=== PATIENT | male | born 1990 | race Caucasian/White ===

== ENCOUNTER 2017-05-06 03:16 | Emergency (ER) | payer MEDICAID ==
[~2017-05-06] VITALS: Ht 170.2 cm; Wt 85.5 kg
[~2017-05-06 03:16] MED LIST: COL100 PO; MYL80 CH; ZOFRAN ODT4 MG SL
[2017-05-06 03:34] VITALS: Ht 170.2 cm; Wt 85.5 kg
[2017-05-06 05:29] VITALS: BP 130/86
== END 2017-05-06 08:04 | disposition home or self-care (01) ==
LOC: ED 03:16
DX: J20.9 Acute bronchitis, unspecified (principal)

== ENCOUNTER 2018-08-14 21:44 | Emergency (ER) | payer OTHER ==
[~2018-08-14] VITALS: Ht 170.2 cm; Wt 88.5 kg
[2018-08-14 22:00] VITALS: Ht 170.2 cm; Wt 88.5 kg
[2018-08-15 00:56] VITALS: BP 122/71
== END 2018-08-15 00:56 | disposition home or self-care (01) ==
LOC: ED 21:44
DX: L02.31 Cutaneous abscess of buttock (principal); Z90.89 Acquired absence of other organs
CPT/HCPCS: J1885; J2001

== ENCOUNTER 2019-09-12 16:18 | Emergency (ER) | payer OTHER ==
[~2019-09-12] VITALS: Ht 170.2 cm; Wt 92.1 kg
[2019-09-12 16:33] VITALS: Ht 170.2 cm; Wt 92.1 kg
[2019-09-12 17:19] VITALS: BP 151/99
== END 2019-09-12 17:19 | disposition home or self-care (01) ==
LOC: ED 16:18
DX: L03.115 Cellulitis of right lower limb (principal); Z90.49 Acquired absence of other specified parts of digestive tract; W57.XXXA Bitten or stung by nonvenomous insect and other nonvenomous arthropods, initial encounter; Y93.89 Activity, other specified; Y92.89 Other specified places as the place of occurrence of the external cause; Y99.8 Other external cause status

== ENCOUNTER 2019-09-14 19:10 | Emergency (ER) | payer OTHER ==
[~2019-09-14] VITALS: Ht 167.6 cm; Wt 90.3 kg
[2019-09-14 19:16] VITALS: Ht 167.6 cm; Wt 90.3 kg
[2019-09-14 19:57] VITALS: BP 134/90
== END 2019-09-14 19:57 | disposition home or self-care (01) ==
LOC: ED 19:10
DX: L02.415 Cutaneous abscess of right lower limb (principal); L03.115 Cellulitis of right lower limb; Z90.89 Acquired absence of other organs